=== PATIENT | male | born 1960 | race Caucasian/White ===

== ENCOUNTER 2021-09-04 22:24 | Observation (INO) | payer OTHER ==
[2021-09-04] MEDS ORDERED: NA CHLORIDE 0.9% 1,000 ML ONE (23:28)
[2021-09-04 23:30] LABS: Absolute Lymphocytes (CBC) 2.8 K/uL (0.7-4.9); Hematocrit 46.3 % (39.6-49.0); Lymphocytes % 44.7 % (15.3-44.8); RBC Red Blood Cell Count 5.26 M/uL (4.33-5.43)
[2021-09-04 23:34] LABS: Protime INR 1.2
--- NOTE | 2021-09-04 23:34 | ER ---
Nurse's Notes [facility] Name: Dwight Coyle Age: 61 yrs Sex: Male : 1960 Arrival Date: 09/04/2021 Time: 22:28 Bed 7 Private MD: Diagnosis: Dizziness and giddiness;Bradycardia, unspecified Presentation: 09/04 22:34 Chief complaint: Patient states: "Low pulse, I took a new medication last night and I tw5 have been getting a heart rate of 30.". Coronavirus screen: Vaccine status: Patient reports receiving the 2nd dose of the covid vaccine. moderna. Ebola Screen: Patient negative for fever greater than or equal to 101.5 degrees Fahrenheit, and additional compatible Ebola Virus Disease symptoms Patient denies exposure to infectious person. Patient denies travel to an Ebola-affected area in the 21 days before illness onset. Initial Sepsis Screen: Does the patient meet any 2 criteria? No. Patient's initial sepsis screen is negative. Does the patient have a suspected source of infection? No. Patient's initial sepsis screen is negative. Risk Assessment: Do you want to hurt yourself or someone else? Patient reports no desire to harm self or others. Onset of symptoms was September 04, 2021 at 21:30. 22:34 Method Of Arrival: Ambulatory tw5 22:34 Acuity: SACHI 2 tw5 Historical: - Allergies: 22:40 No Known Allergies; tw5 - Home Meds: 23:11 fluconazole 100 mg Oral tab [Active]; levothyroxine 25 mcg tab [Active]; metoprolol hui tartrate 25 mg Oral tab [Active]; Xarelto 20 mg oral tab [Active]; - Immunization history:: Client reports receiving the 2nd dose of the Covid vaccine, Moderna. - Social history:: Patient/guardian denies using Smoking status: Patient/guardian denies using. - Family history:: not pertinent. Screenin:11 Abuse screen: Denies threats or abuse. Denies injuries from another. Nutritional hui screening: No deficits noted. Tuberculosis screening: No symptoms or risk factors identified. Fall Risk None identified. Assessment: 23:08 Reassessment: Patient appears in no apparent distress at this time. General: Appears in hui no apparent distress. Behavior is cooperative, anxious, Reports "a low heart rate...this is because of my new medications...". Pain: Denies pain. Neuro: No deficits noted. Cardiovascular: Reports bradycardia Rhythm is sinus bradycardia. Respiratory: No deficits noted. GI: No deficits noted. : No deficits noted. EENT: No deficits noted. Vital Signs: 22:34 BP 157 / 73; Pulse 43; Resp 18; Temp 98.6(O); Pulse Ox 98% ; Weight 83.91 kg; Height 5 tw5 ft. 10 in. (177.80 cm); Pain 3/10; 23:11 BP 151 / 99; Pulse 56; Resp 15; Temp 97.8; Pulse Ox 99% on R/A; Weight 83.91 kg (R); hui Height 5 ft. 10 in. (177.80 cm) (R); Pain 0/10; 23:58 BP 143 / 86; Pulse 69; Resp 12; Pulse Ox 94% on R/A; hui 09/05 00:15 BP 127 / 87; Pulse 62; Resp 14; Pulse Ox 95% on R/A; hui 04:52 BP 145 / 85; Pulse 46; Resp 12; Pulse Ox 96% on R/A; Pain 0/10; hui 05:40 BP 139 / 91; Pulse 43; Resp 17; Pulse Ox 97% on R/A; hui 06:21 BP 147 / 86; Pulse 60; Resp 14; Pulse Ox 95% on R/A; hui 09/04 23:11 Body Mass Index 26.54 (83.91 kg, 177.80 cm) hui ED Course: 09/04 22:28 Patient arrived in ED. bp1 22:40 Triage completed. tw5 22:42 Demar Perez MD is Attending Physician. peace 22:42 River Bennett, [place] is Primary Nurse. as6 22:44 Arm band placed on. as6 23:11 Patient has correct armband on for positive identification. Placed in gown. Bed in low hui position. Call light in reach. Side rails up X 1. Adult w/ patient. media monitor on. Pulse ox on. NIBP on. Noise minimized. Lights dimmed. 23:11 accompanied pt from Triage. Inserted saline lock: 18 gauge in right antecubital hui area, using aseptic technique. 23:23 COVID-19 SARS RT PCR (Document "Date of Onset" if Symptomatic) Sent. hui 23:23 TSH Sent. hui 23:24 Basic Metabolic Panel Sent. hui 23:24 CBC with Diff Sent. hui 23:24 LFT's Sent. hui 23:24 Magnesium Sent. hui 23:24 NT PRO-BNP Sent. hui 23:24 PT-INR Sent. hui 23:24 Troponin (emerg Dept Use Only) Sent. hui 23:32 Gilbert Serrano DO is Hospitalizing Provider. peace 09/05 00:01 Troponin (emerg Dept Use Only) Sent. hui 00:01 NT PRO-BNP Sent. hui 00:01 Magnesium Sent. hui 00:01 LFT's Sent. hui 00:01 Basic Metabolic Panel Sent. hui 00:09 XRAY Chest (1 view) In Process Unspecified. EDMS 00:11 Jordan Horn MD is Hospitalizing Provider. [facility] 00:15 Awaiting bed assignment. hui 05:36 Appears to be sleeping. hui 05:41 Patient admitted, IV remains in place. hui 06:49 role handed off by Lu Garcia, [place] cs9 07:38 Primary Nurse role handed off by River Bennett RN bd Administered Medications: 09/04 23:30 Drug: NS 0.9% 1000 ml Route: IV; Rate: 125 ml/hr; Site: right antecubital; hui Outcome: 23:33 Decision to Hospitalize by Provider. [facility] 09/05 04:54 Condition: stable hui 05:42 Admitted to hui 10:38 Patient left the ED. iw Signatures: Dispatcher [employer] EDMS Trish Nogueira Corey, MD MD cha Williams, Irene, RN RN Danay Alexander Tiffany [facility] Chely Loo cs9 River Bennett RN RN as6 Lu Garcia RN RN hui Corrections: (The following items were deleted from the chart) 09/04 22:41 22:40 Allergies: No Known Allergies; [facility] tw5
--- NOTE | 2021-09-04 23:34 | EDPHYS ---
Physician Documentation [facility] Name: Dwight Coyle Age: 61 yrs Sex: Male : 1960 Arrival Date: 09/04/2021 Time: 22:28 Bed 7 Private MD: CATHERINE Physician Demar Perez HPI: 09/04 22:58 This 61 yrs old Male presents to ER via Ambulatory with complaints of Low peace Pulse Rate. 22:58 The patient presents with a history of irregular heart beat, heart skipping beats. peace Context: The symptoms occur at rest. Onset: The symptoms/episode began/occurred 2 day(s) ago. Duration: The patient or guardian reports multiple episodes, that are intermittent. Modifying factors: The symptoms are aggravated by light activity, sitting up, The symptoms are alleviated by remaining still, rest. The patient presents with dizziness, generalized weakness. Context: occurred at home. Associated signs and symptoms: Pertinent positives: palpitations. Historical: - Allergies: 22:40 No Known Allergies; tw5 - Home Meds: 23:11 fluconazole 100 mg Oral tab [Active]; levothyroxine 25 mcg tab [Active]; metoprolol hui tartrate 25 mg Oral tab [Active]; Xarelto 20 mg oral tab [Active]; - Immunization history:: Client reports receiving the 2nd dose of the Covid vaccine, Moderna. - Social history:: Patient/guardian denies using Smoking status: Patient/guardian denies using. - Family history:: not pertinent. ROS: 22:58 Constitutional: Negative for fever, chills, and weight loss, Eyes: Negative for injury, peace pain, redness, and discharge, ENT: Negative for injury, pain, and discharge, Neck: Negative for injury, pain, and swelling, Respiratory: Negative for shortness of breath, cough, wheezing, and pleuritic chest pain, Abdomen/GI: Negative for abdominal pain, nausea, vomiting, diarrhea, and constipation, Back: Negative for injury and pain, : Negative for injury, bleeding, discharge, and swelling, MS/Extremity: Negative for injury and deformity, Skin: Negative for injury, rash, and discoloration, Neuro: Negative for headache, weakness, numbness, tingling, and seizure, Psych: Negative for depression, anxiety, suicide ideation, homicidal ideation, and hallucinations, Allergy/Immunology: Negative for hives, rash, and allergies, Endocrine: Negative for neck swelling, polydipsia, polyuria, polyphagia, and marked weight changes, Hematologic/Lymphatic: Negative for swollen nodes, abnormal bleeding, and unusual bruising. 22:58 Cardiovascular: Positive for chest pain, palpitations. Exam: 22:58 Constitutional: This is a well developed, well nourished patient who is awake, alert, peace and in no acute distress. Head/Face: Normocephalic, atraumatic. Eyes: Pupils equal round and reactive to light, extra-ocular motions intact. Lids and lashes normal. Conjunctiva and sclera are non-icteric and not injected. Cornea within normal limits. Periorbital areas with no swelling, redness, or edema. ENT: Nares patent. No nasal discharge, no septal abnormalities noted. Tympanic membranes are normal and external auditory canals are clear. Oropharynx with no redness, swelling, or masses, exudates, or evidence of obstruction, uvula midline. Mucous membranes moist. Neck: Trachea midline, no thyromegaly or masses palpated, and no cervical lymphadenopathy. Supple, full range of motion without nuchal rigidity, or vertebral point tenderness. No Meningismus. Chest/axilla: Normal chest wall appearance and motion. Nontender with no deformity. No lesions are appreciated. Respiratory: Lungs have equal breath sounds bilaterally, clear to auscultation and percussion. No rales, rhonchi or wheezes noted. No increased work of breathing, no retractions or nasal flaring. Abdomen/GI: Soft, non-tender, with normal bowel sounds. No distension or tympany. No guarding or rebound. No evidence of tenderness throughout. Back: No spinal tenderness. No costovertebral tenderness. Full range of motion. Male : Normal genitalia with no discharge or lesions. Skin: Warm, dry with normal turgor. Normal color with no rashes, no lesions, and no evidence of cellulitis. MS/ Extremity: Pulses equal, no cyanosis. Neurovascular intact. Full, normal range of motion. Neuro: Awake and alert, GCS 15, oriented to person, place, time, and situation. Cranial nerves II-XII grossly intact. Motor strength 5/5 in all extremities. Sensory grossly intact. Cerebellar exam normal. Normal gait. Psych: Awake, alert, with orientation to person, place and time. Behavior, mood, and affect are within normal limits. 22:58 Cardiovascular: Rate: bradycardic, Rhythm: irregular, Pulses: Pulses are 4+ in bilateral radial, brachial, femoral, popliteal, posterior tibial and and dorsalis pedis arteries.. Heart sounds: normal, Edema: is not appreciated, JVD: is not appreciated. 23:03 ECG was reviewed by the Attending Physician. peace Vital Signs: 22:34 BP 157 / 73; Pulse 43; Resp 18; Temp 98.6(O); Pulse Ox 98% ; Weight 83.91 kg; Height 5 tw5 ft. 10 in. (177.80 cm); Pain 3/10; 23:11 BP 151 / 99; Pulse 56; Resp 15; Temp 97.8; Pulse Ox 99% on R/A; Weight 83.91 kg (R); hui Height 5 ft. 10 in. (177.80 cm) (R); Pain 0/10; 23:58 BP 143 / 86; Pulse 69; Resp 12; Pulse Ox 94% on R/A; hui 09/05 00:15 BP 127 / 87; Pulse 62; Resp 14; Pulse Ox 95% on R/A; hui 04:52 BP 145 / 85; Pulse 46; Resp 12; Pulse Ox 96% on R/A; Pain 0/10; hui 05:40 BP 139 / 91; Pulse 43; Resp 17; Pulse Ox 97% on R/A; hui 06:21 BP 147 / 86; Pulse 60; Resp 14; Pulse Ox 95% on R/A; hui 09/04 23:11 Body Mass Index 26.54 (83.91 kg, 177.80 cm) hui MDM: 09/04 22:42 Patient medically screened. peace 23:00 Differential diagnosis: arrythmia. Differential diagnosis: cardiac arrhythmia, peace generalized weakness, hypovolemia, idiopathic dizziness, near-syncope. Data reviewed: vital signs, nurses notes, lab test result(s), EKG, radiologic studies, plain films. Data interpreted: Pulse oximetry: on room air is 98 %. Test interpretation: by ED physician or midlevel provider: ECG, plain radiologic studies. Counseling: I had a detailed discussion with the patient and/or guardian regarding: the historical points, exam findings, and any diagnostic results supporting the discharge/admit diagnosis, lab results, radiology results. 09/04 22:49 Order name: Basic Metabolic Panel la1 09/04 22:49 Order name: CBC with Diff; Complete Time: 23:36 la09/04 22:49 Order name: LFT's la09/04 22:49 Order name: Magnesium la1 09/04 22:49 Order name: NT PRO-BNP la1 09/04 22:49 Order name: PT-INR; Complete Time: 23:36 09/04 22:49 Order name: Troponin (emerg Dept Use Only) la09/04 22:49 Order name: XRAY Chest (1 view) la09/04 22:49 Order name: EKG; Complete Time: 22:50 la09/04 22:49 Order name: Cardiac monitoring; Complete Time: 23:23 09/04 22:50 Order name: TSH la09/04 23:18 Order name: COVID-19 SARS RT PCR (Document "Date of Onset" if Symptomatic); Complete Time: 00:11 09/05 00:05 Order name: T4 Free [facility] 09/04 22:49 Order name: EKG - Nurse/Tech; Complete Time: 22:51 09/04 22:49 Order name: IV Saline Lock; Complete Time: 23:24 la09/04 22:49 Order name: Labs collected and sent; Complete Time: 23:24 09/04 22:49 Order name: O2 Per Protocol; Complete Time: 23:24 la09/04 22:49 Order name: O2 Sat Monitoring; Complete Time: 23:24 EC:03 Rate is 34 beats/min. Rhythm is irregularly irregular. QRS [place] is Normal. OR interval peace is normal. QRS interval is normal. QT interval is normal. No Q waves. T waves are Normal. No ST changes noted. Clinical impression: Sinus bradycardia. Interpreted by me. Reviewed by me. Administered Medications: 23:30 Drug: NS 0.9% 1000 ml Route: IV; Rate: 125 ml/hr; Site: right antecubital; hui Disposition Summary: 09/04/21 23:33 Hospitalization Ordered Hospitalization Status: Observation peace Condition: Fair peace Problem: new peace Symptoms: have improved peace Bed/Room Type: Standard peace Provider: Jordan Horn(09/05/21 00:11) peace Location: [facility] ER HOLD(09/05/21 00:43) mw Room Assignment: ERHOLD-(09/05/21 00:43) Diagnosis - Dizziness and giddiness peace - Bradycardia, unspecified peace Forms: - Medication Reconciliation Form peace - SBAR form peace Signatures: Dispatcher [employer] EDRadha Wright RN RN Demar Diaz MD MD cha Attema, Lee, FORK ASSEMBLER-C FORK ASSEMBLER-Tere Lord tw5 Lu Garcia RN RN hui Corrections: (The following items were deleted from the chart) 22:41 22:40 Allergies: No Known Allergies; tw5 tw5 09/05 00:11 09/04 23:33 Gilbert Serrano cha [facility] 09/05 00:43 09/04 23:33 Telemetry/MedSurg (observation) peace 09/05 00:43 09/04 23:33 peace
[2021-09-04 23:55] LABS: ALT/SGPT 36 U/L (12-78); AST/SGOT 19 U/L (15-37); Albumin 3.4 g/dL (3.4-5.0); Alkaline Phosphatase 50 U/L (45-117); BUN Blood Urea Nitrogen 25 mg/dL (7-18); Bicarbonate 26 mmol/L (21-32); Bilirubin Direct < 0.1 mg/dL (0-0.2); Bilirubin Total 0.2 mg/dL (0.2-1.0); Glucose Level 106 mg/dL (74-106); Magnesium 2.2 mg/dL (1.8-2.4); NT PRO-BNP 187 pg/mL (<125); Protein, Total 7.4 g/dL (6.4-8.2); Sodium Level 139 mmol/L (136-145); Troponin (Emerg Dept Use Only) < 0.02 ng/mL (0.0-0.045)
--- NOTE | 2021-09-05 00:25 | P.HP ---
Certification for Inpatient Patient admitted to: Observation With expected LOS: <2 Midnights Patient will require the following post-hospital care: None Practitioner: I am a practitioner with admitting privileges, knowledge of patient current condition, hospital course, and medical plan of care. Services: Services provided to patient in accordance with Admission requirements found in Title 42 Section 412.3 of the Code of Federal Regulations Patient History Date of Service: 09/05/21 Primary Care Provider: Out of town Reason for admission: Bradycardia History of Present Illness: 61-year-old male with history of factor V Leiden, hypothyroidism presents to the emergency department for bradycardia. Patient reports that he went to his primary care doctor and was noted to have a "extra heartbeat" his doctor prescribed him metoprolol succinate 25 mg p.o. daily. Patient first took this medication on 09/03 at 2100. This evening after taking his dose of metoprolol patient was feeling weak, his checked his pulse and noted to be very flow between 30 and 40. Upon arrival to the emergency department patient's heart rate was 30. Patient was evaluated in the emergency department EKG demonstrated couplets and frequent PVCs labs were significant for creatinine 1.47 GFR 48 BUN 25 BNP 187 TSH 5.56 Free T4 0.97 patient with some improvement of heart rate currently between 45 and 55 still with relatively frequent PVCs. Emergency department provider wishes to admit under observation for bradycardia likely induced by beta-catherine Allergies No Known Drug Allergies Allergy (Unverified 04/04/15 16:05) Unknown - Past Medical/Surgical History -: Factor V Leiden -: Hypothyroidism -: Tonsillectomy Psychosocial/ Personal History: Retired, lives at home with his - Family History Sister -: Cancer Father -: Heart disease - Social History Smoking Status: Never smoker Alcohol use: No CD- Drugs: No Caffeine use: Yes Place of Residence: Home Review of Systems 10-point ROS is otherwise unremarkable General: Weakness Cardiovascular: Palpitations Physical Examination - Physical Exam General: Alert, In no apparent distress, Oriented x3 HEENT: Atraumatic, PERRLA, Mucous membr. moist/pink, EOMI, Sclerae nonicteric Neck: Supple, 2+ carotid pulse no bruit, No LAD, Without JVD or thyroid abnormality Respiratory: Clear to auscultation bilaterally, Normal air movement Cardiovascular: Normal S1 S2, Irregular heart rate/rhythm (Bradycardia with frequent PVCs/couplets rate 45) Gastrointestinal: Normal bowel sounds, No tenderness Musculoskeletal: No tenderness Integumentary: No rashes Neurological: Normal gait, Normal speech, Normal strength at 5/5 x4 extr, Normal tone, Normal affect Lymphatics: No axilla or inguinal lymphadenopathy - Studies Laboratory Data (last 24 hrs) 09/04/21 23:00: PT 13.8 H, INR 1.20 09/04/21 23:00: WBC 6.20, Hgb 15.1, Hct 46.3, Plt Count 219 09/04/21 23:00: Sodium 139, Potassium 4.0, BUN 25 H, Creatinine 1.47 H, Glucose 106, Magnesium 2.2, Total Bilirubin 0.2, AST 19, ALT 36, Alkaline Phosphatase 50 Assessment and Plan - Plan Assessment: Bradycardia with couplets/frequent PVCs Factor V Leiden Hypothyroidism Plan: Bradycardia with couplets/frequent PVCs: Patient initiated metoprolol succinate 25 mg p.o. daily on 09/03/2021, this is most likely related to use of beta- catherine, holding medication at this time will monitor on telemetry throughout the evening. Can likely be discharged tomorrow as long as heart rate continues to improve. Patient chest pain-free labs unremarkable electrolytes normal free T4 normal. Consult cardiology as necessary. Factor V Leiden: Continue Xarelto Hypothyroidism: Obtain and continue home dose of levothyroxine. T4 normal. DVT PPX: Continue Xarelto Code status: Full code Discharge Plan: Home Plan to discharge in: 24 Hours - Advance Directives Does patient have a Living Will: No Does patient have a Durable POA for Healthcare: No - Code Status/Comfort Care Code Status Assessed: Yes (Full code) Critical Care: No Time Spent Managing Pts Care (In Minutes): 55
[2021-09-05] MEDS ORDERED: NA CHLORIDE 0.9% 1,000 ML IV SCH (01:16)
[2021-09-05 03:28] VITALS: BMI 26.5
--- NOTE | 2021-09-05 07:14 | RAD REPORT ---
EXAM DESCRIPTION: RAD - Chest Single View - 09/05/2021 12:07 am CLINICAL HISTORY: bradycardia COMPARISON: No comparisons FINDINGS: Lines: None. Lungs: No evidence of edema or pneumonia. Pleural: No significant pleural effusions or pneumothorax. Cardiac: The heart size is within normal limits. Bones: No acute fractures. Other: IMPRESSION: No acute cardiopulmonary disease.
--- NOTE | 2021-09-05 08:44 | P.DS ---
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 the time of discharge patient was alert oriented responsive cooperative denied any shortness of breath cough or c hest pain no dizziness his pulse rate was 66 blood pressure stable he is to continue with his Xarelto dose as prescribed by his primary care physician and follow-up with him Vital Signs/Physical Exam: Temp Pulse Resp BP Pulse Ox 97.8 F 47 L 14 143/85 H 97 09/05/21 03:57 09/05/21 03:57 09/05/21 03:57 09/05/21 03:57 09/05/21 03:57 Laboratory Data at Discharge: WBC 6.20 K/uL (4.3-10.9) 09/04/21 23:00 Hgb 15.1 g/dL (13.6-17.9) 09/04/21 23:00 Hct 46.3 % (39.6-49.0) 09/04/21 23:00 Plt Count 219 K/uL (152-406) 09/04/21 23:00 PT 13.8 SECONDS (9.5-12.5) H 09/04/21 23:00 INR 1.20 09/04/21 23:00 Sodium 139 mmol/L (136-145) 09/04/21 23:00 Potassium 4.0 mmol/L (3.5-5.1) 09/04/21 23:00 BUN 25 mg/dL (7-18) H 09/04/21 23:00 Creatinine 1.47 mg/dL (0.55-1.3) H 09/04/21 23:00 Glucose 106 mg/dL (74-106) 09/04/21 23:00 Magnesium 2.2 mg/dL (1.8-2.4) 09/04/21 23:00 Total Bilirubin 0.2 mg/dL (0.2-1.0) 09/04/21 23:00 AST 19 U/L (15-37) 09/04/21 23:00 ALT 36 U/L (12-78) 09/04/21 23:00 Alkaline Phosphatase 50 U/L (45-117) 09/04/21 23:00 Home Medications: Rivaroxaban [Xarelto*] 20 mg PO DAILY AT SUPPER tablet 09/05/21 Followup: NONE,NONE [Primary Care Provider] -
[2021-09-05 08:59] VITALS: BP 144/94; TEMP 97.5
[2021-09-05] MEDS ORDERED: PNEUMOCOCCAL VACCINE 0.5 ML IMVAC ONE (09:00)
[2021-09-05 11:01] VITALS: O2SAT 95
[2021-09-05] MEDS ORDERED: RIVAROXABAN 10 MG TABLET PO SCH (17:00)
[2021-09-05] MEDS ORDERED: RIVAROXABAN 20 MG TABLET PO SCH (17:00)
== END 2021-09-05 09:45 | disposition home or self-care (01) ==
LOC: ER 22:24 → ERHOLD 09-05 00:56
PROVIDERS: ADMIT Internal Medicine Sleep Medicine; ATTEND Internal Medicine Sleep Medicine
DX: R00.1 Bradycardia, unspecified (principal); I49.3 Ventricular premature depolarization; D68.2 Hereditary deficiency of other clotting factors; E03.9 Hypothyroidism, unspecified; Z79.01 Long term (current) use of anticoagulants; Z20.822 Contact with and (suspected) exposure to COVID-19; Z82.49 Family history of ischemic heart disease and other diseases of the circulatory system; Z80.9 Family history of malignant neoplasm, unspecified
CPT/HCPCS: 93005; 85025; 80048; 36415; 83735; 85610; 80076; 84443; 84484; 84439; 83880; 71045; 99285; U0003; J7030; G0378 ×2

== ENCOUNTER 2022-01-17 11:35 | Emergency (ER) | payer OTHER ==
[2022-01-17] MEDS ORDERED: NA CHLORIDE 0.9% 1,000 ML ONE (12:07)
[2022-01-17 12:15] LABS: Absolute Lymphocytes (CBC) 1.1 K/uL (0.7-4.9); Hematocrit 47.9 % (39.6-49.0); MPV 8.9 fL (7.6-11.3); RBC Red Blood Cell Count 5.49 M/uL (4.33-5.43)
[2022-01-17 12:22] LABS: Protime INR 1.04
[2022-01-17 12:30] LABS: Potassium 4.1 mmol/L (3.5-5.1); Troponin High Sensitivity 4.1 pg/mL (<58.9)
--- NOTE | 2022-01-17 12:48 | RAD REPORT ---
EXAM DESCRIPTION: [place] Single View01/17/2022 12:16 pm CLINICAL HISTORY: Chest pain COMPARISON: 2020 FINDINGS: The lungs appear clear of acute infiltrate. The heart is normal size IMPRESSION: No acute abnormalities displayed
[2022-01-17 13:44] LABS: Urine Blood Negative (Negative); Urine Glucose Negative (Negative); Urine Protein Negative (Negative); Urine pH 6.5 (5.0-7.0)
--- NOTE | 2022-01-17 13:57 | EDPHYS ---
Physician Documentation [facility] Name: Dwight Coyle Age: 61 yrs Sex: Male : 1960 Arrival Date: 01/17/2022 Time: 11:36 Bed 16 Private MD: ED Physician Demar Perez HPI: 01/17 13:51 This 61 yrs old Male presents to ER via Ambulatory with complaints of Chest peace Pain. 13:51 The patient or guardian reports chest pain that is located primarily in the anterior peace chest wall, left. Onset: 1 day(s) ago. The pain does not radiate. Associated signs and symptoms: The patient has no apparent associated signs or symptoms. The chest pain is described as aching, a pressure. Duration: The patient or guardian reports multiple episodes, with no pattern. Modifying factors: The symptoms are alleviated by nothing. the symptoms are aggravated by nothing. Severity of pain: At its worst the pain was mild in the emergency department the pain has resolved and did so just prior to arrival. The patient has experienced similar episodes in the past, multiple times. Historical: - Allergies: 11:45 No Known Drug Allergies; ph - Immunization history:: Adult Immunizations up to date. - Social history:: Smoking status: Patient denies any tobacco usage or history of. - Family history:: not pertinent. ROS: 13:51 Constitutional: Negative for fever, chills, and weight loss, Eyes: Negative for injury, peace pain, redness, and discharge, ENT: Negative for injury, pain, and discharge, Neck: Negative for injury, pain, and swelling, Respiratory: Negative for shortness of breath, cough, wheezing, and pleuritic chest pain, Abdomen/GI: Negative for abdominal pain, nausea, vomiting, diarrhea, and constipation, Back: Negative for injury and pain, : Negative for injury, bleeding, discharge, and swelling, MS/Extremity: Negative for injury and deformity, Skin: Negative for injury, rash, and discoloration, Neuro: Negative for headache, weakness, numbness, tingling, and seizure, Psych: Negative for depression, anxiety, suicide ideation, homicidal ideation, and hallucinations, Allergy/Immunology: Negative for hives, rash, and allergies, Endocrine: Negative for neck swelling, polydipsia, polyuria, polyphagia, and marked weight changes, Hematologic/Lymphatic: Negative for swollen nodes, abnormal bleeding, and unusual bruising. 13:51 Cardiovascular: Positive for chest pain, of the left breast. Exam: 13:51 Constitutional: This is a well developed, well nourished patient who is awake, alert, peace and in no acute distress. Head/Face: Normocephalic, atraumatic. Eyes: Pupils equal round and reactive to light, extra-ocular motions intact. Lids and lashes normal. Conjunctiva and sclera are non-icteric and not injected. Cornea within normal limits. Periorbital areas with no swelling, redness, or edema. ENT: Nares patent. No nasal discharge, no septal abnormalities noted. Tympanic membranes are normal and external auditory canals are clear. Oropharynx with no redness, swelling, or masses, exudates, or evidence of obstruction, uvula midline. Mucous membranes moist. Neck: Trachea midline, no thyromegaly or masses palpated, and no cervical lymphadenopathy. Supple, full range of motion without nuchal rigidity, or vertebral point tenderness. No Meningismus. Chest/axilla: Normal chest wall appearance and motion. Nontender with no deformity. No lesions are appreciated. Cardiovascular: Regular rate and rhythm with a normal S1 and S2. No gallops, murmurs, or rubs. Normal PMI, no JVD. No pulse deficits. Respiratory: Lungs have equal breath sounds bilaterally, clear to auscultation and percussion. No rales, rhonchi or wheezes noted. No increased work of breathing, no retractions or nasal flaring. Abdomen/GI: Soft, non-tender, with normal bowel sounds. No distension or tympany. No guarding or rebound. No evidence of tenderness throughout. Back: No spinal tenderness. No costovertebral tenderness. Full range of motion. Skin: Warm, dry with normal turgor. Normal color with no rashes, no lesions, and no evidence of cellulitis. MS/ Extremity: Pulses equal, no cyanosis. Neurovascular intact. Full, normal range of motion. Neuro: Awake and alert, GCS 15, oriented to person, place, time, and situation. Cranial nerves II-XII grossly intact. Motor strength 5/5 in all extremities. Sensory grossly intact. Cerebellar exam normal. Normal gait. Psych: Awake, alert, with orientation to person, place and time. Behavior, mood, and affect are within normal limits. 13:51 Musculoskeletal/extremity: ROM: no acute changes, intact in all extremities, Circulation is intact in all extremities. Pulses: Perfusion: the patient is normally perfused throughout, Sensation intact. Compartment Syndrome exam of affected extremity: is normal. DVT Exam: No signs of deep vein thrombosis. no pain, no swelling, no tenderness, negative Homans' sign noted on exam, no appreciated bluish discoloration, no erythema, no increased warmth. 13:53 ECG was reviewed by the Attending Physician. peace 14:18 ECG was reviewed by the Attending Physician. peace Vital Signs: 11:43 BP 124 / 97; Pulse 61; Resp 16; Temp 98.0; Pulse Ox 97% on R/A; Weight 81.65 kg; Height ph 5 ft. 10 in. (177.80 cm); 12:01 Pulse 73; Resp 15; Pulse Ox 100% on R/A; ld1 12:46 BP 110 / 64; Pulse 63; Resp 21; Pulse Ox 97% on R/A; ld1 13:30 BP 117 / 66; Pulse 63; Resp 17; Pulse Ox 97% on R/A; ld1 14:30 BP 127 / 83; Pulse 56; Resp 18; Pulse Ox 98% on R/A; ld1 11:43 Body Mass Index 25.83 (81.65 kg, 177.80 cm) ph MDM: 11:52 Patient medically screened. [facility] [place] 13:53 Differential diagnosis: abnormal EKG, acute myocardial infarction, acute pericarditis, peace anxiety, chest wall pain, cholecystitis, gastritis, hiatal hernia, pancreatitis, pulmonary embolus, stable angina, unstable angina. HEART Score: History: Slightly Suspicious (0), ECG: Non specific repolarization disturbance / LBTB / PM (1), Age: > 45 and < 65 years (1), Risk Factors: 1 or 2 risk factors (1), [+ Family HX]. The patient was not given aspirin in the Emergency Department. Not indicated due to patient's past medical history. The patient's deep vein thrombosis risk score was calculated as follows: Total Score: 0. This patient was found to be at low risk for a deep vein thrombosis by using the Well's assessment criteria. The patient's pulmonary embolism risk score was calculated as follows: Total Score: 0-2 points. This patient was found to be at low risk for a pulmonary embolism by using the Well's assessment criteria. DERREK Risk Score: TOTAL SCORE = 0. Data reviewed: vital signs, nurses notes, lab test result(s), EKG, radiologic studies, plain films. Data interpreted: monitor tech: rate is 63 beats/min, rhythm is regular. Test interpretation: by ED physician or midlevel provider: ECG, plain radiologic studies. Counseling: I had a detailed discussion with the patient and/or guardian regarding: the historical points, exam findings, and any diagnostic results supporting the discharge/admit diagnosis, lab results, radiology results, the need for outpatient follow up, for definitive care, a nipple machine operator, a family practitioner. 01/17 11:55 Order name: Basic Metabolic Panel; Complete Time: 13:48 01/17 11:55 Order name: CBC with Diff; Complete Time: 13:48 01/17 11:55 Order name: Troponin HS; Complete Time: 13:48 01/17 11:57 Order name: PT-INR; Complete Time: 13:48 [facility] [place] 01/17 11:57 Order name: SARS-COV-2 RT PCR (Document "Date of Onset" if Symptomatic); Complete Time: [facility] [place] 13:48 01/17 13:44 Order name: Urine Dipstick-Ancillary; Complete Time: 13:48 [facility] 01/17 11:55 Order name: XRAY Chest (1 view); Complete Time: 13:48 01/17 11:55 Order name: EKG; Complete Time: 11:55 01/17 13:50 Order name: Troponin High Sensitivity: 2pm if neg dc [facility] [place] 01/17 13:50 Order name: EKG; Complete Time: 13:50 [facility] [place] 01/17 14:26 Order name: Liver (Hepatic) Function [facility] 01/17 14:26 Order name: NT PRO-BNP [facility] 01/17 14:26 Order name: Magnesium [facility] 01/17 14:26 Order name: Lipase [facility] 01/17 14:26 Order name: Thyroid Stimulating Hormone [facility] 01/17 15:02 Order name: T4 Free [facility] 01/17 11:57 Order name: Cardiac monitoring; Complete Time: 12:01 [facility] [place] 01/17 11:57 Order name: EKG - Nurse/Tech; Complete Time: 12:31 [facility] [place] 01/17 11:57 Order name: IV Saline Lock; Complete Time: 12:01 [facility] [place] 01/17 11:57 Order name: Labs collected and sent; Complete Time: 12:01 [facility] [place] 01/17 11:57 Order name: O2 Per Protocol; Complete Time: 12:01 [facility] [place] 01/17 11:57 Order name: O2 Sat Monitoring; Complete Time: 12:01 [facility] [place] 01/17 11:57 Order name: Urine Dipstick-Ancillary (obtain specimen); Complete Time: 13:44 [facility] [place] 01/17 13:50 Order name: EKG - Nurse/Tech; Complete Time: 14:12 [facility] [place] EC:53 Rate is 70 beats/min. Rhythm is regular. QRS [place] is Normal. NM interval is normal. QRS peace interval is normal. QT interval is normal. No Q waves. T waves are Normal. No ST changes noted. Clinical impression: Normal ECG and No evidence of ischemia. Interpreted by me. Reviewed by me. 14:18 Rate is 67 beats/min. Rhythm is regular. QRS [place] is Normal. NM interval is normal. QRS peace interval is normal. QT interval is normal. No Q waves. T waves are Normal. No ST changes noted. Clinical impression: NSR w/ Non-specific ST/T Changes and No evidence of ischemia. Interpreted by me. Reviewed by me. Administered Medications: 12:04 Drug: NS 0.9% 1000 ml Route: IV; Rate: 125 ml/hr; Site: right antecubital; ld1 13:44 Follow up: Response: No adverse reaction; IV Status: Completed infusion; IV Intake: ld1 1000ml Disposition Summary: 01/17/22 13:57 Discharge Ordered Location: Home peace Problem: new peace Symptoms: have improved peace Condition: Stable peace Diagnosis - Chest pain, unspecified peace - Palpitations peace - Anxiety disorder, unspecified - upset peace - Ventricular premature depolarization peace Followup: peace - With: Private Physician - When: 1 - 2 days - Reason: Recheck today's complaints, Continuance of care, Re-evaluation by your physician Followup: peace - With: Benito Valentine MD - When: 1 - 2 days - Reason: Recheck today's complaints, Re-evaluation by your physician Discharge Instructions: - Discharge Summary Sheet peace - Nonspecific Chest Pain, Adult peace - Palpitations peace - Nonspecific Chest Pain, Adult, [id number] peace - Palpitations, [id number] peace - Premature Ventricular Contraction peace - Managing Anxiety, Adult peace Forms: - Medication Reconciliation Form peace - Thank You Letter peace - Antibiotic Education peace - Prescription Opioid Use peace Signatures: Dispatcher [employer] EDMS Demar Perez MD MD cha Hall, Patricia, RN RN ph Mayito Velazquez, RN RN bp Rachell Francisco, RN RN ld1 Corrections: (The following items were deleted from the chart) 11:59 11:55 Cardiac monitoring ordered. ph ld1 12:00 11:55 EKG - Nurse/Tech ordered. ph ld1 12:00 11:55 IV Saline Lock ordered. ph ld1 12:00 11:55 Labs collected and sent ordered. [facility] 12:00 11:55 Oxygen Per Protocol ordered. [facility] 12:00 11:55 O2 Sat Monitoring ordered. ph ld1 12:16 11:58 Chest Single View+RAD.RAD.BRZ ordered. EDMS EDMS 14:15 12:44 THYROID STIMULAT HORMONE+C.LAB.BRZ ordered. EDMS EDMS 14:25 11:58 BASIC METABOLIC PANEL+C.LAB.BRZ ordered. EDMS EDMS 14:25 11:58 HEPATIC FUNCTION+C.LAB.BRZ ordered. EDMS EDMS 14:25 11:58 MAGNESIUM+C.LAB.BRZ ordered. EDMS EDMS 14:25 11:58 PROBNP+C.LAB.BRZ ordered. EDMS EDMS 14:25 11:58 Troponin High Sensitivity+C.LAB.BRZ ordered. EDMS EDMS 14:26 11:58 LIPASE+C.LAB.BRZ ordered. EDMS EDMS 14:26 14:16 Thyroid Stimulating Hormone ordered. EDMS EDMS 14:28 11:58 CBC+H.LAB.BRZ ordered. EDMS EDMS
--- NOTE | 2022-01-17 13:57 | ER ---
Nurse's Notes [facility] Name: Dwight Coyle Age: 61 yrs Sex: Male : 1960 Arrival Date: 01/17/2022 Time: 11:36 Bed 16 Private MD: Diagnosis: Chest pain, unspecified;Palpitations;Anxiety disorder, unspecified-upset;Ventricular premature depolarization Presentation: 01/17 11:43 Chief complaint: Patient states: Headache, dizziness and L sided chest pain that ph started yesterday. Hx of irregular heart beat. Coronavirus screen: Vaccine status: Patient reports receiving the 2nd dose of the covid vaccine. Ebola Screen: No symptoms or risks identified at this time. Initial Sepsis Screen: Does the patient meet any 2 criteria? No. Patient's initial sepsis screen is negative. Does the patient have a suspected source of infection? No. Patient's initial sepsis screen is negative. Risk Assessment: Do you want to hurt yourself or someone else? Patient reports no desire to harm self or others. Onset of symptoms was January 17, 2022. 11:43 Method Of Arrival: Ambulatory ph 11:43 Acuity: SACHI 2 ph Triage Assessment: 11:54 General: Appears in no apparent distress. uncomfortable, Behavior is cooperative, bp appropriate for age, anxious. Pain: Complains of pain in chest. EENT: No deficits noted. Neuro: No deficits noted. Cardiovascular: Rhythm is sinus rhythm with unifocal PVCs. Respiratory: No deficits noted. GI: No signs and/or symptoms were reported involving the gastrointestinal system. : No signs and/or symptoms were reported regarding the genitourinary system. Derm: No deficits noted. Musculoskeletal: No deficits noted. Historical: - Allergies: 11:45 No Known Drug Allergies; ph - Immunization history:: Adult Immunizations up to date. - Social history:: Smoking status: Patient denies any tobacco usage or history of. - Family history:: not pertinent. Screenin:55 Abuse screen: Denies threats or abuse. Denies injuries from another. Nutritional bp screening: No deficits noted. Tuberculosis screening: No symptoms or risk factors identified. Fall Risk None identified. Assessment: 11:55 General: SEE TRIAGE NOTE. bp 12:01 Pain:. ld1 13:30 Reassessment: Patient appears in no apparent distress at this time. Patient and/or ld1 family updated on plan of care and expected duration. Pain level reassessed. Patient is alert, oriented x 3, equal unlabored respirations, skin warm/dry/pink. 14:30 Reassessment: Patient appears in no apparent distress at this time. Patient and/or ld1 family updated on plan of care and expected duration. Pain level reassessed. Patient is alert, oriented x 3, equal unlabored respirations, skin warm/dry/pink. Vital Signs: 11:43 BP 124 / 97; Pulse 61; Resp 16; Temp 98.0; Pulse Ox 97% on R/A; Weight 81.65 kg; Height ph 5 ft. 10 in. (177.80 cm); 12:01 Pulse 73; Resp 15; Pulse Ox 100% on R/A; ld1 12:46 BP 110 / 64; Pulse 63; Resp 21; Pulse Ox 97% on R/A; ld1 13:30 BP 117 / 66; Pulse 63; Resp 17; Pulse Ox 97% on R/A; ld1 14:30 BP 127 / 83; Pulse 56; Resp 18; Pulse Ox 98% on R/A; ld1 11:43 Body Mass Index 25.83 (81.65 kg, 177.80 cm) ph ED Course: 11:36 Patient arrived in ED. rg4 11:45 Triage completed. ph 11:45 Arm band placed on Patient placed in an exam room. ph 11:52 Demar Perez MD is Attending Physician. peace 11:55 Patient has correct armband on for positive identification. Bed in low position. Call bp light in reach. Side rails up X2. Client placed on continuous cardiac and pulse oximetry monitoring. NIBP monitoring applied. 11:59 Rachell Francisco, [place] is Primary Nurse. ld1 12:01 No provider procedures requiring assistance completed. Inserted saline lock: 20 gauge ld1 in right antecubital area, using aseptic technique. Blood collected. Patient maintains SpO2 saturation greater than 95% on room air. 12:03 SARS-COV-2 RT PCR (Document "Date of Onset" if Symptomatic) Sent. ld1 12:18 XRAY Chest (1 view) In Process Unspecified. EDMS 13:57 Benito Valentine MD is Referral Physician. peace 14:12 Troponin High Sensitivity: 2pm if neg dc Sent. ld1 15:07 IV discontinued, intact, bleeding controlled, No redness/swelling at site. ld1 Administered Medications: 12:04 Drug: NS 0.9% 1000 ml Route: IV; Rate: 125 ml/hr; Site: right antecubital; ld1 13:44 Follow up: Response: No adverse reaction; IV Status: Completed infusion; IV Intake: ld1 1000ml Intake: 13:44 IV: 1000ml; Total: 1000ml. ld1 Outcome: 13:57 Discharge ordered by MD. hand 15:07 Discharged to home ambulatory. ld1 15:07 Condition: stable 15:07 Discharge instructions given to patient, Instructed on discharge instructions, follow up and referral plans. Demonstrated understanding of instructions, follow-up care. 15:07 Patient left the ED. ld1 Signatures: Dispatcher [employer] Demar Santos MD MD cha Hall, Patricia, RN RN Kaylin William rg4 Mayito Velazquez RN RN Rachell Francisco RN RN ld1
[2022-01-17 14:50] LABS: Albumin 3.4 g/dL (3.4-5.0); Bilirubin Direct 0.1 mg/dL (0-0.2); Bilirubin Total 0.6 mg/dL (0.2-1.0); Magnesium 1.9 mg/dL (1.8-2.4); Troponin High Sensitivity 4.9 pg/mL (<58.9)
[2022-01-17 14:59] LABS: Thyroid Stimulating Hormone 4.05 uIU/mL (0.360-3.740)
[2022-01-17 15:20] VITALS: TEMP 98
[2022-01-17 15:27] VITALS: BP 127/83; O2SAT 98
--- NOTE | 2022-01-18 08:57 | EKG ---
Test Date: 2022-01-17 Test Time: 14:06:15 Senior Nuclear Medicine Technologist: LINDA MEASUREMENT RESULTS: Intervals: Rate: 67 MT: 148 QRSD: 82 QT: 412 QTc: 435 [place]: P: 44 MT: 148 QRS: 74 T: 39 INTERPRETIVE STATEMENTS: Sinus rhythm with sinus arrhythmia with frequent premature ventricular complexes Low voltage QRS Borderline ECG Compared to ECG 01/17/2022 11:52:45 Low QRS voltage now present Electronically Signed On 01-18-22 08:56:22 CDT by Benito Valentine
--- NOTE | 2022-01-18 08:58 | EKG ---
Test Date: 2022-01-17 Test Time: 11:52:45 Medical Affairs Specialist: VANESSA MEASUREMENT RESULTS: Intervals: Rate: 70 CT: 130 QRSD: 80 QT: 386 QTc: 416 [place]: P: 38 CT: 130 QRS: 63 T: 37 INTERPRETIVE STATEMENTS: Sinus rhythm with marked sinus arrhythmia with occasional premature ventricular complexes Otherwise normal ECG Compared to ECG 09/04/2021 22:44:23 No significant changes Electronically Signed On 01-18-22 08:56:26 CDT by Benito Valentine
== END 2022-01-17 15:07 | disposition home or self-care (01) ==
LOC: ER 11:35
DX: R07.9 Chest pain, unspecified (principal); F41.9 Anxiety disorder, unspecified; I49.3 Ventricular premature depolarization; R00.2 Palpitations; Z20.822 Contact with and (suspected) exposure to COVID-19
CPT/HCPCS: 96361; 93005 ×2; 85025; 80048; 36415; 83735; 85610; 80076; 84443; 81003; 84484 ×2; 84439; 83690; 83880; 71045; 96360; 99285; U0003; J7030